=== PATIENT | male | born 1970 | race Caucasian/White ===

== ENCOUNTER → 2016-03-16 | Outpatient (CLI) | payer BC ==
[~2016-03-16] MED LIST: COREG 3.123.125 MG/T PO; GAS AID MAXIMU125 MG PO; LIPITOR 10MG10 MG PO; NEXIUM40 MG PO; PHENERGAN 25 TA25 MG PO; PROZAC 10MG10 MG PO; ZYRTEC5 MG PO
== END ==
LOC: COL.RAD 09:08
DX: Z85.528 Personal history of other malignant neoplasm of kidney (principal)
CPT/HCPCS: A9503

== ENCOUNTER 2016-08-20 03:22 | Emergency (ER) | payer BC ==
[~2016-08-20] VITALS: Ht 180.3 cm; Wt 100.0 kg
[~2016-08-20 03:22] MED LIST changes: -COREG 3.123.125 MG/T PO; -GAS AID MAXIMU125 MG PO; -PROZAC 10MG10 MG PO
[2016-08-20 03:24] VITALS: TEMP 97.9
[2016-08-20] MEDS ORDERED: PROZAC 10MG10 MG PO (03:32)
[2016-08-20] MEDS ORDERED: COREG 3.123.125 MG/T PO (03:33)
[2016-08-20 04:03] LABS: BASO % 0.4 % (0.0-2.0); EOS # 0.2 (0.0-0.7); EOS % 1.9 % (0-4.0); GRAN # 4.5 (1.4-6.5); GRAN % 55.2 % (42.2-75.2); HEMATOCRIT 41.5 % (42.0-52.0); HEMOGLOBIN 14.4 g/dl (13.5-18.0); LYMPH # 2.5 (1.2-3.4); LYMPH % 30.4 % (20.0-51.0); MEAN CELL VOLUME 89 fl (80.0-100.0); MEAN CORPUSCULAR HEMOGLOBIN 31 pg (27.0-31.0); MEAN CORPUSCULAR HGB CONC 35 g/dl (33.0-37.0); MEAN PLATELET VOLUME 10.4 fl (7.4-10.4); MONO % 11.9 % (1.7-9.3); PLATELET COUNT 167 K/mm3 (130-400); RED BLOOD COUNT 4.68 M/mm3 (4.20-5.60); REDCELL DISTRIBUTION WIDTH-CV 13.2 % (11.5-14.5); WHITE BLOOD COUNT 8.1 K/mm3 (4.8-10.8)
[2016-08-20] MEDS ORDERED: GAS AID MAXIMU125 MG PO (04:03)
[2016-08-20 04:09] LABS: ADJUSTED CALCIUM 9.4 mg/dL (8.4-10.2); ALANINE AMINOTRANSFERASE 28 U/L (21-72); ALBUMIN 4.4 gm/dL (3.5-5.0); ALKALINE PHOSPHATASE 89 U/L (50-136); ANION GAP 14 mmol/L (7-16); BILIRUBIN,TOTAL 0.6 mg/dL (0.0-1.0); BLOOD UREA NITROGEN 22 mg/dL (9-20); CALCIUM 9.7 mg/dL (8.4-10.2); CARBON DIOXIDE 29 mmol/L (22-30); CHLORIDE 100 mmol/L (98-107); CREATININE, serum 1.25 mg/dL (0.66-1.25); GLUCOSE 105 mg/dL (74-106); LIPASE 91 U/L (23-300); SODIUM 143 mmol/L (137-145); TOTAL PROTEIN 7.7 gm/dL (6.4-8.2)
[2016-08-20 04:21] LABS: B-TYPE NATRIURETIC PEPTIDE 145 pg/mL (0-125); TROPONIN-I < 0.012 ng/mL (0.000-0.034)
[2016-08-20 04:25] LABS: PROTHROMBIN TIME 10.6 SECONDS (9.7-12.8)
[2016-08-20 06:52] VITALS: BP 132/91; PULSE 56
== END 2016-08-20 06:55 | disposition home or self-care (01) ==
LOC: COL.ER 03:22
PROVIDERS: Emergency Medicine
DX: R07.89 Other chest pain (principal); K21.9 Gastro-esophageal reflux disease without esophagitis; Z85.528 Personal history of other malignant neoplasm of kidney; Z85.118 Personal history of other malignant neoplasm of bronchus and lung; Z90.5 Acquired absence of kidney
CPT/HCPCS: C9113

== ENCOUNTER → 2016-11-22 | Outpatient (CLI) | payer BC ==
[~2016-11-22] MED LIST changes: +COREG 3.123.125 MG/T PO; +GAS AID MAXIMU125 MG PO; +PROZAC 10MG10 MG PO
== END ==
LOC: COL.RAD 12:52
DX: R09.89 Other specified symptoms and signs involving the circulatory and respiratory systems (principal)

== ENCOUNTER 2021-05-26 14:17 | Day surgery (SDC) | payer BC ==
[~2021-05-26] VITALS: Ht 180.3 cm; Wt 104.3 kg
[2021-05-26 15:29] VITALS: BP 150/99; PULSE 62; TEMP 97.1
[2021-05-26 16:50] VITALS: BP 169/108; PULSE 59; TEMP 98
[2021-05-26 17:00] VITALS: BP 145/109; PULSE 58
[2021-05-26 17:15] VITALS: BP 163/100; PULSE 58
--- NOTE | 2021-05-26 17:40 | NUR ---
1650 Pt returns from endo procedure via cart and RN assist to [facility]. Pt ambulates from cart to recliner with RN assist. Monitors on and alarms set. Call light within reach. Report received from ASHOK Quezada. Pt alert and oriented. Pt requests water, muffin, and applesauce?. Pt denies any pain or nausea. 1700 Pt taking food and drink well. No complications noted. 1735 Discharge instructions given to pt. All questions answered to his satisfaction. Handed to pt are a thank you card and discharge information. 1740 Pt transferred out of the hospital via wheelchair and Jessica assist, to private vehicle driven by friend.
== END 2021-05-26 17:40 | disposition home or self-care (01) ==
LOC: SDCO 14:17
DX: R19.5 Other fecal abnormalities (principal); R15.2 Fecal urgency; R19.8 Other specified symptoms and signs involving the digestive system and abdomen; Z85.528 Personal history of other malignant neoplasm of kidney; Z85.118 Personal history of other malignant neoplasm of bronchus and lung
CPT/HCPCS: J2704; J7030

== ENCOUNTER 2023-02-08 14:56 | Outpatient (RCR) | payer BC | END 2023-02-10 | disposition home or self-care (01) | LOC: COL.CR | DX: Z48.812 Encounter for surgical aftercare following surgery on the circulatory system (principal); Z98.61 Coronary angioplasty status; I25.2 Old myocardial infarction ==

== ENCOUNTER → 2023-02-08 | Outpatient (CLI) | payer BC ==
[2023-02-08 16:09] LABS: CALCIUM 9.8 mg/dL (8.4-10.2); CREATININE, serum 1.34 mg/dL (0.72-1.25); POTASSIUM 4.5 mmol/L (3.5-4.5)
== END ==
LOC: COL.LAB 15:37
PROVIDERS: Internal Medicine Cardiovascular Disease
DX: I10 Essential (primary) hypertension (principal)

== ENCOUNTER 2023-03-11 23:12 | Emergency (ER) | payer BC ==
[~2023-03-11] VITALS: Ht 177.8 cm; Wt 105.5 kg
[2023-03-11 23:20] VITALS: TEMP 98.1
[2023-03-11 23:53] LABS: BASO # 0.1 K/mm3 (0.0-0.2); BASO % 0.7 % (0.0-2.0); EOS # 0.1 K/mm3 (0.0-0.7); EOS % 1.6 % (0.0-4.0); GRAN # 3.6 K/mm3 (1.4-6.5); GRAN % 53.7 % (42.2-75.2); HEMATOCRIT 43.5 % (42.0-52.0); HEMOGLOBIN 14.8 g/dl (13.5-18.0); LYMPH # 2.2 K/mm3 (1.2-3.4); LYMPH % 31.9 % (20.0-51.0); MEAN CELL VOLUME 90 fl (80.0-100.0); MEAN CORPUSCULAR HEMOGLOBIN 31 pg (27-31); MEAN CORPUSCULAR HGB CONC 34 g/dl (33.0-37.0); MEAN PLATELET VOLUME 10.1 fl (7.4-10.4); MONO # 0.8 K/mm3 (0.1-0.6); PLATELET COUNT 191 K/mm3 (130-400); RED BLOOD COUNT 4.86 M/mm3 (4.20-5.60); REDCELL DISTRIBUTION WIDTH-CV 13.5 % (11.5-14.5)
[2023-03-11 23:59] LABS: PROTHROMBIN TIME 11.2 SECONDS (9.7-12.8)
[2023-03-12 00:01] LABS: ALANINE AMINOTRANSFERASE 43 U/L (0-55); ALBUMIN 4.3 gm/dL (3.5-5.0); ALKALINE PHOSPHATASE 122 U/L (40-150); ANION GAP 12 mmol/L (7-16); AST,SGOT 37 U/L (5-34); BILIRUBIN,TOTAL 0.8 mg/dL (0.2-1.2); BLOOD UREA NITROGEN 20 mg/dL (8-26); CALCIUM 9.8 mg/dL (8.4-10.2); CARBON DIOXIDE 25 mmol/L (22-29); CHLORIDE 105 mmol/L (98-107); CREATININE, serum 1.41 mg/dL (0.72-1.25); GLUCOSE 95 mg/dL (70-99); SODIUM 142 mmol/L (136-145); TOTAL PROTEIN 7.7 gm/dL (6.2-8.1)
[2023-03-12 00:02] LABS: PARTIAL THROMBOPLASTIN TIME 34.3 SECONDS (26.0-37.0)
[2023-03-12 00:14] LABS: TROPONIN-I < 0.010 ng/mL (0.00-0.033)
[2023-03-12] MEDS ORDERED: Mag/Al Hydrox/Simeth Susp 30 ML CUP PO ONE (00:15)
[2023-03-12] MEDS ORDERED: NS 1,000 ML IV ONE (00:15)
[2023-03-12] MEDS ORDERED: Iohexol 300 - 100 ML VIAL IV ONE (02:09)
[2023-03-12 04:00] VITALS: BP 180/129; PULSE 63
== END 2023-03-12 04:00 | disposition home or self-care (01) ==
LOC: COL.ER 23:12
PROVIDERS: Internal Medicine
DX: I25.10 Atherosclerotic heart disease of native coronary artery without angina pectoris (principal); I10 Essential (primary) hypertension; Z95.5 Presence of coronary angioplasty implant and graft
CPT/HCPCS: J7030; Q9967

== ENCOUNTER → 2023-03-13 | Outpatient (RCR) | payer BC | END | disposition home or self-care (01) | LOC: COL.CR | DX: Z48.812 Encounter for surgical aftercare following surgery on the circulatory system (principal); Z98.61 Coronary angioplasty status; I25.2 Old myocardial infarction ==

== ENCOUNTER 2023-04-10 15:38 | Outpatient (RCR) | payer BC | END 2023-04-11 | disposition home or self-care (01) | LOC: COL.CR | DX: Z48.812 Encounter for surgical aftercare following surgery on the circulatory system (principal); Z98.61 Coronary angioplasty status; I25.2 Old myocardial infarction ==